=== PATIENT | female | born 1980 | race Two or more races ===

== ENCOUNTER 2017-02-27 01:48 | Inpatient (IN) | payer OTHER ==
[2017-02-27 03:19] LABS: Hematocrit 34 % (35-47); Hemoglobin 11.4 g/dl (12.0-16.0); Mean Corpuscular HGB Conc 33 g/dl (31-36); Mean Corpuscular Hemoglobin 27 pg (27-31); Mean Corpuscular Volume 81 fL (80-97); Mean Platelet Volume 11 um3 (7.4-10.4); Red Blood Count 4.23 10^6/ul (4.0-5.4); Red Cell Distribution Width 15 % (10.5-15); White Blood Count 10.3 10^3/ul (3.5-10.8)
[2017-02-27] MEDS ORDERED: OBEPIDURAL* 250 ML ONE (04:52)
[2017-02-27] MEDS ORDERED: Phenylephrine IV* 40 MCG/ML 10 ML SYRINGE IV PUSH PRN ×2 (05:27)
[2017-02-27] MEDS ORDERED: Sodium Citrate/Citric Acid* 15 ML UDC PO PRN (05:27)
[2017-02-27] MEDS ORDERED: Famotidine TAB* 20 MG PO PRN (05:27)
[2017-02-27] MEDS ORDERED: OBEPIDURAL* 250 ML EPIDURAL SCH (06:00)
[2017-02-27] MEDS ORDERED: Oxytocin in LR* 20 UNITS/1,000 ML BAG IVPB ONE (09:54)
[2017-02-27] MEDS ORDERED: Oxytocin in LR* 20 UNITS/1,000 ML BAG IVPB SCH ×2 (10:00→12:00)
[2017-02-27] MEDS ORDERED: Glycerin ADULT SUPP PR PRN (11:20)
[2017-02-27] MEDS ORDERED: Dibucaine 1% 28.35 GM TUBE PR PRN (11:20)
[2017-02-27] MEDS ORDERED: Witch Hazel PAD* JAR TOPICAL PRN (11:20)
[2017-02-27] MEDS ORDERED: Acetaminophen TAB* 325 MG PO PRN (11:20)
[2017-02-27] MEDS ORDERED: Simethicone CHEW TAB* 80 MG PO SCH (12:30)
[2017-02-27] MEDS: Ibuprofen TAB* 600 MG PO PRN ×2 (12:45→23:57)
[2017-02-27] MEDS: Docusate CAP* 100 MG PO SCH ×2 (12:46→21:08)
[2017-02-27] MEDS ORDERED: Phenylephrine IV* 40 MCG/ML 10 ML SYRINGE ONE (18:45)
[2017-02-28] MEDS: Docusate CAP* 100 MG PO SCH ×2 (08:22→13:56)
[2017-02-28] MEDS: Ibuprofen TAB* 600 MG PO PRN ×2 (08:22→13:55)
[2017-02-28 08:58] LABS: Hematocrit 32 % (35-47); Hemoglobin 10.5 g/dl (12.0-16.0); Mean Corpuscular HGB Conc 33 g/dl (31-36); Mean Corpuscular Hemoglobin 27 pg (27-31); Mean Corpuscular Volume 82 fL (80-97); Mean Platelet Volume 12 um3 (7.4-10.4); Red Blood Count 3.93 10^6/ul (4.0-5.4); Red Cell Distribution Width 16 % (10.5-15); White Blood Count 16.3 10^3/ul (3.5-10.8)
[2017-02-28] MEDS ORDERED: Ferrous Gluconate TAB* 324 MG TAB PO SCH (09:00)
[2017-03-01] MEDS: Ibuprofen TAB* 600 MG PO PRN ×2 (00:07→07:32)
[2017-03-01] MEDS: Docusate CAP* 100 MG PO SCH ×2 (00:13→07:32)
[2017-03-01 07:37] VITALS: BP 118/64
[2017-03-01] MEDS ORDERED: Varicella Virus Vaccine Live* 0.5 ML VIAL SUBCUT ONE (11:00)
== END 2017-03-01 11:27 | disposition home or self-care (01) | DRG 560 ==
LOC: MCHOBOUT 01:48 → MCHOB 02:51
PROVIDERS: ADMIT Midwife; ATTEND Midwife
PROC: 10E0XZZ Delivery of Products of Conception, External Approach (ICD-10-PCS; principal; 2017-02-27)
PROC: 10907ZC Drainage of Amniotic Fluid, Therapeutic from Products of Conception, Via Natural or Artificial Opening (ICD-10-PCS; 2017-02-27)
PROC: 0HQ9XZZ Repair Perineum Skin, External Approach (ICD-10-PCS; 2017-02-27)
DX: O48.0 Post-term pregnancy (principal); O99.12 Other diseases of the blood and blood-forming organs and certain disorders involving the immune mechanism complicating childbirth; O70.0 First degree perineal laceration during delivery; O32.2XX0 Maternal care for transverse and oblique lie, not applicable or unspecified; O69.89X0 Labor and delivery complicated by other cord complications, not applicable or unspecified; O99.824 Streptococcus B carrier state complicating childbirth; Z3A.40 40 weeks gestation of pregnancy; Z37.0 Single live birth
CPT/HCPCS: 36415; 85025; 86850; 86900; 86901; A9270-GY

== ENCOUNTER 2017-11-28 20:49 | Emergency (ER) | payer OTHER ==
[2017-11-28 21:08] VITALS: BP 129/87
== END 2017-11-28 22:57 | disposition left against medical advice (07) ==
LOC: ED 20:49
DX: F41.9 Anxiety disorder, unspecified (principal); Z53.21 Procedure and treatment not carried out due to patient leaving prior to being seen by health care provider

== ENCOUNTER 2020-01-12 20:13 | Emergency (ER) | payer OTHER ==
--- NOTE | 2020-01-12 20:28 | ED ---
Substance Abuse/Use - HPI Summary HPI Summary: Patient is a 39 y/o F presenting to [facility] via EMS for heroin overdose. The patient was found unresponsive by family, who called EMS. EMS found the patient apenic. Chest compressions were done for approximately ten minutes and Narcan 2 mg was also administered. Patient had improvement of respirations. She arrives to the ED alert and oriented x3. Upon arrival, patient initially denied substance usage but later admitted to having snorted heroin. Patient claims that she has been experiencing back pain and decided to try heroin for the first time in order to alleviate the pain. She reports using one bag of heroin that she obtained from her sister. No other substances reported. Home medications and allergies are reviewed. Home Medications Medication Instructions Recorded Confirmed Type Vitamins W/ Ferrous S 1 tab PO DAILY 04/18/15 03/13/19 History [Clinical Nutrients Prenat 7.5-0.2 mg] Vitamin D 1 tab PO DAILY 02/27/17 03/13/19 History Acetaminophen TAB* [Tylenol TAB*] 650 mg PO Q4H PRN #0 tab 03/01/17 03/13/19 Rx Dibucaine 1% OINT* [Nupercainal 1% 1 applic OK QID PRN #0 tube 03/01/17 Rx oint*] Ibuprofen TAB* [Motrin TAB* 600 MG] 600 mg PO Q6H PRN #0 tab 03/01/17 03/13/19 Rx Witch Nataliia PAD* [Tucks*] 1 pad TOPICAL .PRN PRN #0 gm 03/01/17 03/13/19 Rx - History Of Current Complaint Stated Complaint: UNRESPONSIVE PER EMS Hx Obtained From: Patient, EMS Ingestion History: Type/Name Of Drug - heroin, Amount Ingested - one bag Overdose Characteristics: Inhalation Timing Of Abuse: Intermittent - claims first time usage Character: Other - unresponsive and apneic, since resolved Aggravating Factor(s): Other - back pain Associated Signs And Symptoms: Altered Mental Status, Intentional Ingestion - Allergies/Home Medications Allergies/Adverse Reactions: Allergies Allergy/AdvReac Type Severity Reaction Status Date / Time No Known Allergies Allergy Verified 03/13/19 09:57 Home Medications: Home Medications Vitamins W/ Ferrous S [Clinical Nutrients Prenat 7.5-0.2 mg] 1 tab PO DAILY 04/18/15 [History Confirmed 03/13/19] Vitamin D 1 tab PO DAILY 02/27/17 [History Confirmed 03/13/19] Acetaminophen TAB* [Tylenol TAB*] 650 mg PO Q4H PRN #0 tab 03/01/17 [Rx Confirmed 03/13/19] Dibucaine 1% OINT* [Nupercainal 1% oint*] 1 applic OK QID PRN #0 tube 03/01/17 [ Rx Confirmed 03/13/19] Ibuprofen TAB* [Motrin TAB* 600 MG] 600 mg PO Q6H PRN #0 tab 03/01/17 [Rx Confirmed 03/13/19] David William PAD* [Tucks*] 1 pad TOPICAL .PRN PRN #0 gm 03/01/17 [Rx Confirmed ] PMH/Surg Hx/FS Hx/Imm Hx Musculoskeletal History: Denies: Hx Rheumatoid Arthritis, Hx Osteoporosis Psychiatric History: Denies: Hx Eating Disorder, Hx of Violent Episodes Against Others - Family History Known Family History: Positive: Respiratory Disease - lung CA - Social History Alcohol Use: None Substance Use Type: Reports: None Smoking Status (MU): Never Smoked Tobacco Review of Systems Constitutional: Other - apneic, unresponsive secondary to heroin usage, since resolved Positive: Myalgia - back pain All Other Systems Reviewed And Are Negative: Yes Physical Exam - Summary Physical Exam Summary: Appearance: Well-appearing, Well-nourished, lying in bed comfortable Skin: Warm, dry, no obvious rash Eyes: sclera anicteric, no conjunctival pallor HENT: mucous membranes moist Neck: deferred Respiratory: No signs of respiratory distress Cardiovascular: Appears well perfused, pulses are nml Abdomen: deferred Musculoskeletal: Moving all 4 extremities without obvious discomfort; no bruising or tenderness to chest Neurological: Awake and alert, mentation is normal, speech is fluent and appropriate Psychiatric: affect is normal, does not appear anxious or depressed Triage Information Reviewed: Yes Vital Signs On Initial Exam: Initial Vital Signs Temp 98.0 F 01/12/20 20:19 Pulse 103 01/12/20 20:19 Resp 18 01/12/20 20:19 BP 135/98 01/12/20 20:19 Pulse Ox 98 01/12/20 20:19 Vital Signs Reviewed: Yes Procedures - Sedation Patient Received Moderate/Deep Sedation with Procedure: No Diagnostics - Laboratory Lab Statement: Any lab studies that have been ordered have been reviewed, and results considered in the medical decision making process. - Radiology PELVIC X-RAY Radiology Interpretation Completed By: ED Physician Summary of Radiographic Findings: No acute process, pending official report. LUMBAR SPINE X-RAY Radiology Interpretation Completed By: ED Physician Summary of Radiographic Findings: No acute process, pending official report. Re-Evaluation - Re-Evaluation First Eval Re-Evaluation Time: 20:30 Comment: Nurse examined patients back and reports there is a notable bruise to the patients lower back/pelvic area. Patient reported that she received this injury after slipping on some ice and falling. X-ray imaging to be obtained. Course/Dx - Course Course Of Treatment: Patient is a 39 y/o F presenting to [facility] via EMS for heroin overdose. The patient was found unresponsive by family, who called EMS. EMS found the patient apenic. Chest compressions were done for approximately ten minutes and Narcan 2 mg was also administered. Patient had improvement of respirations. She arrives to the ED alert and oriented x3. Upon arrival, patient initially denied substance usage but later admitted to having snorted heroin. Patient claims that she has been experiencing back pain and decided to try heroin for the first time in order to alleviate the pain. She reports using one bag of heroin that she obtained from her sister. No other substances reported. No bruising or tenderness to chest noted. Nurse examined patients back and reports there is a notable bruise to the patients lower back/pelvic area. Patient reported that she received this injury after slipping on some ice and falling. X-ray imaging to be obtained. Lumbar spine and pelvic x-rays were negative. Patient remained stable throughout her observation in the ED. Patient was discharged to home and given PCP followup. - Diagnoses Provider Diagnoses: Heroin overdose Discharge ED - Sign-Out/Discharge Documenting (check all that apply): Patient Departure - discharge - Discharge Plan Condition: Good Disposition: HOME Patient Education Materials: Opioid Safety (ED) Referrals: Librado Guerrero MD [Primary Care Provider] - Additional Instructions: You were very close to this evening from overdosing on opioid. Fortunately your family was able to call for help. Ideally do not use opioids again, but if you do be careful and safe. Make sure someone is around with narcan in case of an overdose to treat you. You can get narcan OTC at any pharmacy. - Attestation Statements Document Initiated by Scribe: Yes Documenting Scribe: EUSEBIA CALVILLO Provider For Whom Cheryl is Documenting (Include Credential): CRISSY MCMANUS MD Scribe Attestation: [email or web address], scribed for CRISSY MCMANUS MD on 01/12/20 at 1194. Status of Scribe Document: Ready
[2020-01-12 22:18] VITALS: BP 125/85
== END 2020-01-12 22:20 | disposition home or self-care (01) ==
LOC: ED 20:13
DX: T40.1X1A Poisoning by heroin, accidental (unintentional), initial encounter (principal); R41.82 Altered mental status, unspecified; Y92.9 Unspecified place or not applicable; S30.0XXA Contusion of lower back and pelvis, initial encounter; W00.0XXA Fall on same level due to ice and snow, initial encounter
CPT/HCPCS: 72110; 72170; 99282